=== PATIENT | female | born 1970 | race Caucasian/White ===

== ENCOUNTER 2020-02-07 18:37 | Emergency (ER) | payer OTHER ==
[~2020-02-07] VITALS: Ht 165.1 cm; Wt 104.3 kg
[2020-02-07 18:37] VITALS: BP_SYST 145
--- NOTE | 2020-02-07 18:44 | NUR ---
Patient triaged and placed in waiting room. VSS and patient appears in no acute distress at this time. Awaiting available bed, and MD notified of need for MSE.
== END 2020-02-07 23:35 | disposition left against medical advice (07) ==
LOC: SED 18:37
DX: R00.2 Palpitations (principal); Z53.21 Procedure and treatment not carried out due to patient leaving prior to being seen by health care provider